=== PATIENT | female | born 1940 | race Caucasian/White ===

== ENCOUNTER 2019-11-22 07:08 | Outpatient (CLI) | payer MEDICARE, OTHER | END 2019-11-22 23:59 | disposition home or self-care (01) | LOC: ROC 07:08 | PROVIDERS: ATTEND Radiology Radiation Oncology | DX: C78.01 Secondary malignant neoplasm of right lung (principal); C20 Malignant neoplasm of rectum | CPT/HCPCS: G0463 ==

== ENCOUNTER 2020-04-10 07:42 | Outpatient (CLI) | payer MEDICARE, OTHER | END 2020-04-10 23:59 | disposition home or self-care (01) | LOC: ROC 07:42 | PROVIDERS: ATTEND Radiology Radiation Oncology | DX: Z08 Encounter for follow-up examination after completed treatment for malignant neoplasm (principal); Z85.118 Personal history of other malignant neoplasm of bronchus and lung | CPT/HCPCS: G0463 ==

== ENCOUNTER 2020-06-16 10:01 | Outpatient (CLI) | payer MEDICARE, OTHER | END 2020-06-16 23:59 | disposition home or self-care (01) | LOC: ROC 10:01 | PROVIDERS: ATTEND Radiology Radiation Oncology | DX: Z08 Encounter for follow-up examination after completed treatment for malignant neoplasm (principal); Z85.118 Personal history of other malignant neoplasm of bronchus and lung | CPT/HCPCS: G2251 ==

== ENCOUNTER 2020-08-25 09:30 | Outpatient (CLI) | payer MEDICARE, OTHER | END 2020-08-25 23:59 | disposition home or self-care (01) | LOC: ROC 09:30 | PROVIDERS: ATTEND Radiology Radiation Oncology | DX: Z08 Encounter for follow-up examination after completed treatment for malignant neoplasm (principal); Z85.118 Personal history of other malignant neoplasm of bronchus and lung | CPT/HCPCS: 99212; G0463 ==